=== PATIENT | male | born 1960 | race Caucasian/White ===

== ENCOUNTER 2016-08-15 13:08 | Emergency (ER) | payer BC ==
[~2016-08-15] VITALS: Ht 180.3 cm; Wt 85.1 kg
[2016-08-15] MEDS ORDERED: AUGMENTIN875 MG PO (14:48)
[2016-08-15 15:37] VITALS: BP 127/72
== END 2016-08-15 15:38 | disposition home or self-care (01) ==
LOC: EME 13:08
PROC: 3E0234Z Introduction of Serum, Toxoid and Vaccine into Muscle, Percutaneous Approach (ICD-10-PCS; principal; 2016-08-15)
DX: S51.851A Open bite of right forearm, initial encounter (principal); W54.0XXA Bitten by dog, initial encounter; E78.5 Hyperlipidemia, unspecified; I10 Essential (primary) hypertension
CPT/HCPCS: 73090; 99281; 99284

== ENCOUNTER 2017-12-23 11:39 | Observation (INO) | payer BC ==
[~2017-12-23] VITALS: Ht 177.8 cm; Wt 88.0 kg
[~2017-12-23 11:39] MED LIST: AUGMENTIN875 MG PO
[2017-12-23 12:59] LABS: BASOPHIL (%) 0.5 % (0-1); EOSINOPHIL (%) 0.2 % (0-5); HEMATOCRIT 44.2 % (38.0-50.0); HEMOGLOBIN 15.1 G/DL (12.5-16.6); IMMATURE GRANULOCYTE (%) 1.6 % (0.0-0.7); LYMPHOCYTE COUNT 0.7 K/uL (1.0-2.8); MCH 31.7 PG (29.0-34.0); MCHC 34.2 G/DL (30.0-36.0); MCV 92.7 FL (86-99); MONOCYTE (%) 11.1 % (3-12); MONOCYTE COUNT 0.5 K/uL (0-0.8); NEUTROPHIL (%) 70.6 % (45-76); PLATELET COUNT 153 K/uL (156-360); RBC DIS.WIDTH-CV 11.9 % (11.8-14.6); RBC DIS.WIDTH-SD 41.1 % (39-53); RED BLOOD COUNT 4.77 M/uL (4.00-5.50); WHITE BLOOD COUNT 4.3 K/uL (4.1-10.2)
[2017-12-23 13:09] LABS: ALBUMIN 4.3 g/dL (3.2-4.8); CHLORIDE 102 mEq/L (99-109); POTASSIUM 4.8 mEq/L (3.7-5.4); SODIUM 138 mEq/L (136-147)
[2017-12-23 13:11] LABS: GLUCOSE 164 mg/dL (70-99)
[2017-12-23 13:12] LABS: TOTAL PROTEIN 7.4 g/dL (6.4-8.3)
[2017-12-23 13:13] LABS: TOTAL BILIRUBIN 0.8 mg/dL (0.0-1.0)
[2017-12-23 13:15] LABS: ALKALINE PHOSPHATASE 142 IU/L (3-129); CREATININE 1.6 mg/dL (0.6-1.3); GFR ESTIMATE (CALCULATED) 47 mL/min/ (58.99-99999)
[2017-12-23 13:16] LABS: UREA NITROGEN (BUN) 17 mg/dL (9-23)
[2017-12-23 13:17] LABS: AST (GOT) 72 IU/L (2-34)
[2017-12-23 13:18] LABS: ALT (GPT) 86 IU/L (3-49)
[2017-12-23 13:20] LABS: TROP-I INTERPRETATION NEGATIVE; TROPONIN-I < 0.01 ng/mL (0.0-0.30)
[2017-12-23 13:24] LABS: MONOSPOT (MONONUCLEOSIS SEROL) NEGATIVE
[2017-12-23 14:09] LABS: LIPASE 8 U/L (1.0-51.0)
[2017-12-23 14:19] LABS: CREATINE KINASE 66 IU/L (1-294)
[2017-12-23] MEDS ORDERED: LEXAPRO20 MG PO (14:30)
[2017-12-23] MEDS ORDERED: TACROLIMUS ANHYD1 MG PO ×3 (14:34→14:38)
[2017-12-23 14:39] LABS: THYROTROPIN (TSH) 2.4 MIU/L (0.4-5.5)
[2017-12-23] MEDS ORDERED: TACROLIMUS ANH0.5 MG PO (14:39)
[2017-12-23] MEDS ORDERED: MYCOPHENOLIC A360 MG PO (14:40)
[2017-12-23 14:42] LABS: LYME DISEASE SEROLOGY SCREEN NEGATIVE (NEGATIVE)
[2017-12-23] MEDS ORDERED: PHOSPHA250 MG PO (14:42)
[2017-12-23] MEDS ORDERED: NORVASC5 MG PO (14:42)
[2017-12-23] MEDS ORDERED: LOW DOSE ASPIRI81 M1 PO (14:43)
[2017-12-23] MEDS ORDERED: ABILIFY2 MG PO (14:43)
[2017-12-23] MEDS ORDERED: TRADJENTA5 MG PO (14:43)
[2017-12-23] MEDS ORDERED: MAGNESIUM400 M1 PO (14:44)
[2017-12-23] MEDS ORDERED: TRAZODONE HCL50 MG PO (14:44)
[2017-12-23 20:02] VITALS: BP 143/74
[2017-12-24 00:17] VITALS: BP 140/81
[2017-12-24 04:13] VITALS: BP 131/77
[2017-12-24 06:05] LABS: CHLORIDE 105 MEQ/L (99-109); CREATININE 1.3 MG/DL (0.6-1.3); GFR ESTIMATE (CALCULATED) > 59 mL/min/ (58.99-99999); GLUCOSE 132 mg/dL (70-99); POTASSIUM 4.5 MEQ/L (3.7-5.4); SODIUM 138 MEQ/L (136-147); UREA NITROGEN (BUN) 15 mg/dL (9-23)
[2017-12-24 06:21] LABS: HEMATOCRIT 37.7 % (38.0-50.0); MCH 31.8 PG (29.0-34.0); MCHC 33.7 G/DL (30.0-36.0); MCV 94.5 FL (86-99); PLATELET COUNT 135 K/uL (156-360); RBC DIS.WIDTH-CV 12.1 % (11.8-14.6); RBC DIS.WIDTH-SD 42.5 % (39-53); RED BLOOD COUNT 3.99 M/uL (4.00-5.50); WHITE BLOOD COUNT 2.5 K/uL (4.1-10.2)
[2017-12-24 06:22] LABS: HEMOGLOBIN 12.7 G/DL (12.5-16.6)
[2017-12-24 08:51] VITALS: BP 128/71
[2017-12-24 10:23] LABS: ALBUMIN 3.5 G/DL (3.2-4.8); ALKALINE PHOSPHATASE 105 IU/L (3-129); ALT (GPT) 54 IU/L (3-49); AST (GOT) 44 IU/L (2-34); DIRECT BILIRUBIN 0.2 mg/dL (0.0-0.3); TOTAL BILIRUBIN 0.6 MG/DL (0.0-1.0); TOTAL PROTEIN 5.6 G/DL (6.4-8.3)
[2017-12-24 11:15] LABS: APPEARANCE CLEAR ((CLEAR)); BILIRUBIN NEGATIVE; BLOOD NEGATIVE; COLOR STRAW ((YELLOW)); GLUCOSE (STRIP) 50; KETONES NEGATIVE; LEUKOCYTES NEGATIVE; NITRITE NEGATIVE; PROTEIN (STRIP) NEGATIVE; SPECIFIC GRAVITY 1.006 (1.000-1.030); UCUL ADDED? NO; UROBILINOGEN 0.2 MG/DL (0.2-1.0)
[2017-12-24 12:27] VITALS: BP 141/76
[2017-12-24 15:14] VITALS: BP 135/76
[2017-12-24] MEDS ORDERED: AMLODIPINE BESYL5 MG PO (17:07)
[2017-12-24 17:13] LABS: LACTATE DEHYDROGENASE 314 IU/L (20-246)
== END 2017-12-24 18:58 | disposition home or self-care (01) ==
LOC: EME 11:39 → EDOF 17:12 → ENRESERV 17:18 → 4SOUTH 19:45
PROVIDERS: Hospitalist; Physician Assistant
DX: N17.9 Acute kidney failure, unspecified (principal); E86.0 Dehydration; R10.84 Generalized abdominal pain; R10.13 Epigastric pain; R50.9 Fever, unspecified; R53.83 Other fatigue; R59.1 Generalized enlarged lymph nodes; Z85.72 Personal history of non-Hodgkin lymphomas; Q61.3 Polycystic kidney, unspecified; Z90.5 Acquired absence of kidney; Z94.0 Kidney transplant status; K76.9 Liver disease, unspecified; D72.819 Decreased white blood cell count, unspecified; Z92.25 Personal history of immunosuppression therapy; Z82.49 Family history of ischemic heart disease and other diseases of the circulatory system; I10 Essential (primary) hypertension; D69.6 Thrombocytopenia, unspecified
CPT/HCPCS: 71046; 74176; 80048; 80053; 80076; 80197 90; 81003; 82550; 83605; 83615; 83690; 84443; 84484; 85025; 85027; 86308; 86618; 87040; 87496 90; 87502; 93005; 99281; 99284; G0378; J7030; J7120; J7507; J7518